=== PATIENT | male | born 1985 | race Caucasian/White ===

== ENCOUNTER 2016-09-30 00:44 | Emergency (ER) | payer SELFPAY ==
[~2016-09-30] VITALS: Ht 177.8 cm; Wt 86.0 kg
[2016-09-30 00:47] VITALS: Ht 177.8 cm; Wt 86.0 kg
== END 2016-09-30 02:10 | disposition left against medical advice (07) ==
LOC: E/R 00:44
DX: Z53.21 Procedure and treatment not carried out due to patient leaving prior to being seen by health care provider (principal)